=== PATIENT | male | born 1980 | race Two or more races ===

== ENCOUNTER → 2024-08-15 10:08 | Outpatient (BNVA) | payer SELFPAY | DX: Z09 Encounter for follow-up examination after completed treatment for conditions other than malignant neoplasm (principal); Z04.1 Encounter for examination and observation following transport accident ==

== ENCOUNTER → 2024-11-07 11:08 | Outpatient (BNVA) | payer SELFPAY | DX: Z02.89 Encounter for other administrative examinations (principal) ==